=== PATIENT | male | born 1960 | race Caucasian/White ===

== ENCOUNTER 2017-01-28 07:39 | Inpatient (IN) ==
[2017-01-21 12:15] LABS: MANUAL DIFF NEEDED? NO; URINE MICRO REVIEW NEEDED? NO; URINE SOURCE CLEAN CATCH
[2017-01-21 12:17] LABS: BASO% 0.6 % (0.0-0.8); EOS# 0.12 X1000 (0.0-0.7); EOS% 1.4 % (0.0-10.0); HEMATOCRIT 42.6 % (42.0-52.0); HEMOGLOBIN 14.5 g/dL (14.0-18.0); IMM GRAN# 0.06 X1000 (0.0-0.04); IMM GRAN% 0.7 % (0.0-0.5); LYMPH# 2.14 X1000 (1.2-3.4); LYMPH% 25.4 % (20.5-51.1); MCH 30.1 PG (27-31); MCV 88.4 FL (81-99); MONO# 0.54 X1000 (0.11-0.59); MONO% 6.4 % (1.7-9.3); MPV 9.8 FL (7.4-10.4); NEUT% 65.5 % (42.2-75.2); PLT 219 X1000 (130-400); RBC 4.82 XMIL (4.7-6.1)
[2017-01-21 12:19] LABS: BILIRUBIN URINE NEGATIVE (NEGATIVE); BLOOD URINE TRACE (NEGATIVE); COLOR YELLOW; GLUCOSE URINE NEGATIVE (NEGATIVE); LEUKOCYTES URINE NEGATIVE (NEGATIVE); NITRITE URINE NEGATIVE (NEGATIVE); PH URINE 6.5; PROTEIN URINE NEGATIVE (NEGATIVE); SP GRAVITY URINE 1.008; TURBIDITY URINE CLEAR (CLEAR); UROBILINOGEN URINE NORMAL (NORMAL)
[2017-01-21 12:20] LABS: UR EPITHELIAL CELLS <10 /HPF (<10); URINE BACTERIA NEGATIVE /HPF; URINE RBC <10 /HPF (<10); URINE WBC <10 /HPF (<10)
[2017-01-21 12:28] LABS: PROTIME 10.5 Seconds (9.2-11.7)
[2017-01-21 12:38] LABS: AGAP 12; BUN 10 mg/dL (8-22); CALCIUM 8.9 mg/dL (8.8-10.2); CHLORIDE 100 mmol/L (98-107); COSMO 275; POTASSIUM 3.7 mmol/L (3.5-5.1); SODIUM 137 mmol/L (136-145); TCO2 25 mmol/L (25-35)
--- NOTE | 2017-01-22 05:31 | EKG Report ---
Test Performed on : 01/21/2017 11:46:00 AM Test Reason : Out Patient EKG Blood Pressure : / mmHG Vent. Rate : 052 BPM Atrial Rate : 052 BPM P-R Int : 146 ms QRS Dur : 112 ms QT Int : 444 ms P-R-T Axes : 046 024 041 degrees QTc Int : 412 ms Sinus bradycardia. Incomplete right bundle branch block Borderline ECG When compared with ECG of 19-DEC-2015 13:09, No significant change was found Confirmed by Ricky KIRK, Ben Martinez ([id number]) on 01/25/2017 12:37:16 PM
[2017-01-28] MEDS ORDERED: SEROQUEL PO PRN (09:05)
[2017-01-28] MEDS ORDERED: REGLAN ONE (09:13)
[2017-01-28] MEDS ORDERED: VALIUM ONE (09:13)
[2017-01-28] MEDS ORDERED: LYRICA ONE (09:13)
[2017-01-28] MEDS ORDERED: CELEBREX ONE (09:13)
[2017-01-28] MEDS ORDERED: PEPCID ONE (09:13)
[2017-01-28] MEDS ORDERED: COLACE ONE (09:13)
[2017-01-28] MEDS ORDERED: LR 1,000 ML ONE ×2 (09:14→13:24)
[2017-01-28] MEDS ORDERED: KEFZOL 2 GM/D5W 2 GM/50 ML IVPB ONE (09:14)
[2017-01-28] MEDS ORDERED: MEDROL DOSEPAK PO SCH ×2 (09:15→18:25)
[2017-01-28] MEDS ORDERED: ROBINUL ONE ×2 (09:39→13:24)
[2017-01-28] MEDS ORDERED: VERSED ONE (09:49)
[2017-01-28] MEDS ORDERED: NAROPIN 0.5% ONE (09:49)
[2017-01-28] MEDS ORDERED: TORADOL ONE (09:53)
[2017-01-28] MEDS ORDERED: CYKLOKAPRON 1,000 MG/NS 1,000 MG/100 ML IVPB ONE (09:54)
[2017-01-28] MEDS ORDERED: EXPAREL 1.3% ONE (09:54)
[2017-01-28] MEDS ORDERED: SODIUM CHLORIDE 0.9% ONE (09:54)
[2017-01-28] MEDS ORDERED: MARCAINE 0.25% PF/EPI 1:200,000 ONE (09:54)
[2017-01-28] MEDS ORDERED: NEOSPORIN G.U. IRRIGANT ONE (09:54)
[2017-01-28 12:00] LABS: URINE MICRO REVIEW NEEDED? NO; URINE SOURCE CATH
[2017-01-28 12:12] LABS: BILIRUBIN URINE NEGATIVE (NEGATIVE); BLOOD URINE NEGATIVE (NEGATIVE); COLOR YELLOW; GLUCOSE URINE NEGATIVE (NEGATIVE); LEUKOCYTES URINE NEGATIVE (NEGATIVE); NITRITE URINE NEGATIVE (NEGATIVE); PROTEIN URINE NEGATIVE (NEGATIVE); SP GRAVITY URINE 1.019; TURBIDITY URINE CLEAR (CLEAR); UROBILINOGEN URINE 2 mg/dL (NORMAL)
[2017-01-28 12:13] LABS: UR EPITHELIAL CELLS <10 /HPF (<10); URINE BACTERIA NEGATIVE /HPF; URINE RBC <10 /HPF (<10); URINE WBC <10 /HPF (<10)
[2017-01-28] MEDS ORDERED: DIPRIVAN 1% ONE (12:59)
[2017-01-28] MEDS ORDERED: EPHEDRINE ONE (13:23)
[2017-01-28] MEDS ORDERED: NEOSTIGMINE ONE (13:23)
[2017-01-28] MEDS ORDERED: ZOFRAN ONE (13:23)
[2017-01-28] MEDS ORDERED: OFIRMEV 1000 MG/ISOTONIC SOLN 1,000 MG/100 ML BOTTLE ONE (13:24)
[2017-01-28] MEDS ORDERED: XYLOCAINE-MPF 2% ONE (13:24)
[2017-01-28] MEDS ORDERED: DECADRON ONE (13:24)
[2017-01-28] MEDS ORDERED: QUELICIN (DOSE) ONE (13:24)
[2017-01-28] MEDS ORDERED: NORCURON ONE (13:24)
--- NOTE | 2017-01-28 13:39 | OPERATIVE NOTE ---
PROCEDURE DATE: 01/28/2017 PREOPERATIVE DIAGNOSIS: Rheumatoid arthritis, right glenohumeral joint. POSTOPERATIVE DIAGNOSIS: Rheumatoid arthritis, right glenohumeral joint. PROCEDURE: Right reverse total shoulder arthroplasty with DePuy Delta Xtend size 16 press-fit stem, a 42, +3 humeral cup, a 42 eccentric Glenosphere and a standard Metaglene. SURGEON: Etsrada Hernandes MD. DESIGN PRINTER BALLOON: FABIEN Mai, DENICE Pitt, and Sven Gutierrez RN. ANESTHESIA: General. IV FLUIDS: 1500 mL lactated Ringer's. ESTIMATED BLOOD LOSS: 200 mL. COMPLICATIONS: None. INDICATION: The patient is a 56-year-old male with a chronic history of worsening pain and discomfort in his right shoulder. The patient does have significant debilitating rheumatoid arthritis and recommendation to proceed with right reverse total shoulder arthroplasty was offered. Risks and benefits of surgery were explained, including the risks of anesthesia, , bleeding, infection, failure to relieve pain, postoperative stiffness, nerve injury, blood clots, and other imponderables. All questions answered and patient and family wish to proceed with the surgery. DETAILS OF THE OPERATION: The patient was taken to the operating room and placed supine on the operating table. Once adequate anesthesia was obtained, the patient was placed in a semi-Mcneil beach-chair position. The right shoulder was subsequently prepped and draped in the usual sterile fashion. Sterile fashion. A standard deltopectoral incision was made with skin knife. Hemostasis was obtained using electrocautery. The deltopectoral interval was then developed. The Pérez retractors were then placed. The subscapularis tendon was then elevated approximately 1 cm medial to its insertion. Attention then turned to the proximal humerus where further resection of the rotator cuff posteriorly and superiorly was performed. A starting reamer was then passed. Sequential reaming was then conducted up to a size 14. The proximal humeral cutting guide was pinned in position. The humeral head was then resected. Attention then turned to the glenoid. Using posterior tractors, circumferential dissection was then performed with a deep knife. A guide was then placed in position. Guide pin was placed. Reaming was then conducted. The central hole was then dilated. The wound was copiously irrigated with antibiotic pulsatile lavage. The standard Metaglene was then impacted in position. Three locking screws were placed and 1 nonlocking screw was placed and had good fixation. The wound was copiously irrigated once again. After this had been performed, a 42 eccentric Glenosphere was placed with eccentricity placed inferiorly. Attention then turned to the proximal humerus. The guide was then placed in position. The proximal humerus was reamed. Trial stem was then placed with a 14 and had significant loosening. Therefore, it was increased to a 16 and a trial 16 stem was placed. Initial temp at reduction, the patient did have significant stiffness about the shoulder. Attempt at reduction was unsuccessful. Therefore, a few more millimeters of the proximal humerus was resected and re-trialed and then had good stability with a +3 cup. The trial stem was then removed. Copious irrigation with antibiotic pulsatile lavage while a size 16 Delta Xtend press- fit stem was impacted in position with autologous impaction bone graft. A 42, + 3 humeral cup was impacted in position. The shoulder was reduced, carried through range of motion , and had good stability and acceptable range of motion. Exparel was placed in deep soft tissue. The subscapularis tendon was unable to be repaired. The Exparel was placed in deep soft tissue, as well as subcutaneous tissue. The wound was copiously once again with antibiotic pulsatile lavage. Then 2-0 Vicryl was used to repair the subcutaneous tissue followed by running 2 -0 Prolene. Benzoin and Steri-Strips were applied. Adaptic, sterile 4 x 4, ABD pad, and tape on the right shoulder, followed by a shoulder immobilizer. All counts were correct. The patient tolerated the procedure well. She was transferred to the recovery room in stable condition. cc: Estrada Hernandes MD MTDD
[2017-01-28] MEDS ORDERED: NS 1,000 ML ONE (13:47)
[2017-01-28] MEDS ORDERED: MORPHINE IV PRN (14:06)
[2017-01-28] MEDS ORDERED: ZOFRAN PO PRN (14:15)
[2017-01-28] MEDS ORDERED: MILK OF MAGNESIA PO PRN (14:15)
--- NOTE | 2017-01-28 14:31 | Diag Imaging Result Doc PS360 ---
EXAM: SHOULDER 1 VIEW RIGHT HISTORY: post op total shoulder TECHNIQUE: COMPARISON: 05/30/2016 FINDINGS: The patient has undergone orthopedic replacement of the shoulder since the prior exam. Humeral component appears well-positioned in the proximal shaft. No fracture or dislocation. No separation at the acromioclavicular joint. IMPRESSION: Orthopedic replacement of the right shoulder. Electronically signed by Jose Jay 01/28/2017 2:28 PM
[2017-01-28] MEDS: TYLENOL PO SCH ×2 (15:21→21:39)
[2017-01-28] MEDS: NS 1,000 ML IV SCH ×2 (15:22→21:39)
[2017-01-28] MEDS ORDERED: CYKLOKAPRON 1,000 MG in NS 100 ML IV ONE (16:45)
[2017-01-28] MEDS: CATAPRES PO SCH (17:20)
[2017-01-28] MEDS: KEFZOL 2 GM/D5W 2 GM/50 ML IVPB IV SCH (18:19)
[2017-01-28] MEDS: FLOMAX PO SCH (21:38)
[2017-01-28] MEDS: COLACE PO SCH (21:38)
[2017-01-28] MEDS: PERIDEX MT SCH (21:39)
[2017-01-29] MEDS: KEFZOL 2 GM/D5W 2 GM/50 ML IVPB IV SCH (03:04)
[2017-01-29] MEDS: TYLENOL PO SCH ×5 (03:04→22:42)
[2017-01-29] MEDS: NS 1,000 ML IV SCH ×2 (04:43→17:40)
[2017-01-29 05:50] LABS: HEMATOCRIT 35.6 % (42.0-52.0); HEMOGLOBIN 11.9 g/dL (14.0-18.0)
[2017-01-29] MEDS: OXY IR PO PRN ×3 (06:18→20:57)
[2017-01-29] MEDS: CELEXA PO SCH ×2 (06:18→09:00)
[2017-01-29 06:21] LABS: AGAP 15; BUN 10 mg/dL (8-22); CALCIUM 8.4 mg/dL (8.8-10.2); CHLORIDE 99 mmol/L (98-107); COSMO 271; POTASSIUM 4.3 mmol/L (3.5-5.1); SODIUM 136 mmol/L (136-145); TCO2 22 mmol/L (25-35)
--- NOTE | 2017-01-29 06:57 | PROGRESS NOTE ---
DATE: 01/29/2017 SUBJECTIVE: Patient is a pleasant, 56-year-old male who is 1 day status post right reverse shoulder arthroplasty. The patient is currently resting comfortably. PHYSICAL EXAMINATION: On physical exam of patient's right upper extremity, his dressing is intact. He is grossly neurovascularly intact throughout right upper extremity. LABORATORY DATA: His hemoglobin is 11.9 and hematocrit is 35.6. IMPRESSIONS: Postoperative day #1 status post right reverse shoulder arthroplasty. PLAN: At this point, we will change his dressing and discontinue his Harden, and Hep-Lock his IV. We will proceed with physical therapy. Patient has multiple medical problems and significant rheumatoid arthritis as well as neuropathy. It was felt that the patient would benefit from inpatient rehabilitation. Patient's family agreeable to this. We will consult [facility] for discharge planning. cc: Estrada Hernandes MD
[2017-01-29] MEDS ORDERED: FLOMAX PO SCH (09:00)
[2017-01-29] MEDS: PEPCID PO SCH ×3 (09:50→10:55)
[2017-01-29] MEDS: COLACE PO SCH ×2 (09:52→20:58)
[2017-01-29] MEDS: FLONASE NAS SCH (09:53)
[2017-01-29] MEDS: PERIDEX MT SCH ×2 (09:53→20:57)
[2017-01-29] MEDS: CATAPRES PO SCH ×4 (09:53→21:21)
--- NOTE | 2017-01-29 11:45 | Diag Imaging Result Doc PS360 ---
EXAM: CHEST-PORTABLE HISTORY: rehab TECHNIQUE: AP portable at 1125 COMMENT: The appearance of the chest has not changed significantly since 12/25/2015. The heart size and pulmonary vascularity are within normal limits. IMPRESSION: No acute disease. Electronically signed by Jet Reyes 01/29/2017 11:43 AM
[2017-01-29] MEDS: FLOMAX PO SCH (20:58)
[2017-01-29] MEDS ORDERED: CHLORASEPTIC SPRAY MT PRN (22:43)
[2017-01-30] MEDS: TYLENOL PO SCH ×5 (04:45→23:53)
[2017-01-30] MEDS: OXY IR PO PRN ×2 (04:46→14:10)
[2017-01-30 05:45] LABS: HEMATOCRIT 39.8 % (42.0-52.0); HEMOGLOBIN 13.3 g/dL (14.0-18.0)
--- NOTE | 2017-01-30 05:56 | PROGRESS NOTE ---
DATE: 01/30/2017 SUBJECTIVE: Patient is a pleasant 56-year-old male who is 2 days status post right reverse total shoulder arthroplasty. He is currently resting comfortably this morning. OBJECTIVE: Patient's wound looks good. There are no signs or symptoms of infection. He is grossly neurovascularly intact. LABORATORY DATA: His hemoglobin and hematocrit is pending IMPRESSION: Postoperative day #2 status post right reverse shoulder arthroplasty. PLAN: At this point, continue with therapy. We will continue with therapy for mobilization. Plan to discharge to rehab tomorrow. cc: Estrada Hernandes MD
--- NOTE | 2017-01-30 07:28 | DISCHARGE SUMMARY ---
ADMISSION DATE: 01/28/2017 DISCHARGE DATE: 01/31/2017 ADMITTING DIAGNOSES: 1. Rheumatoid arthritis, right glenohumeral joint. 2. Neuropathy. 3. Hypertension. DISCHARGE DIAGNOSES: 1. Rheumatoid arthritis, right glenohumeral joint. 2. Neuropathy. 3. Hypertension. 4. Status post right reverse shoulder arthroplasty. BRIEF HISTORY: The patient is a pleasant 56-year-old male with a chronic history of worsening pain and discomfort of his right shoulder. The patient does have debilitating rheumatoid arthritis and recommendation to proceed with right reverse shoulder arthroplasty was offered. Risks, benefits, and alternatives were discussed, and all questions were answered. The patient and family wished to proceed with surgery. HOSPITAL COURSE AND TREATMENT: The patient was admitted to the hospital and underwent right reverse shoulder arthroplasty. The patient tolerated the procedure well. By postop day #2, his hemoglobin and hematocrit had stabilized to 13.3 and 39.8. His wound looked good. There are no signs or symptoms of infection. Prior to discharge, the patient is afebrile, tolerating a regular diet. His pain was well controlled with p.o. medication. It was felt the patient would benefit from inpatient rehabilitation. The patient and family were agreeable to this. DISCHARGE MEDICATIONS: OxyIR 5 mg 1-2 p.o. q.4 hours p.r.n. pain. For remaining medications, please see medication list. DISCHARGE PLAN: 1. The patient will be discharged for inpatient rehabilitation. 2. Consult physical therapy for passive range of motion exercises of the right shoulder. 3. Discontinue sutures in 11 days. 4. Follow up in the office in 3-4 weeks. cc: Estrada Hernandes MD
[2017-01-30] MEDS ORDERED: VITAMIN D PO SCH ×2 (09:00→09:04)
[2017-01-30] MEDS: PEPCID PO SCH (09:37)
[2017-01-30] MEDS: CATAPRES PO SCH ×3 (09:37→17:44)
[2017-01-30] MEDS: CELEXA PO SCH (09:37)
[2017-01-30] MEDS: COLACE PO SCH ×2 (09:38→20:31)
[2017-01-30] MEDS: PERIDEX MT SCH ×2 (09:38→20:31)
[2017-01-30] MEDS: FLONASE NAS SCH (09:46)
[2017-01-30] MEDS: FLOMAX PO SCH (20:31)
[2017-01-31] MEDS: TYLENOL PO SCH ×2 (05:48→10:52)
[2017-01-31 06:42] LABS: HEMOGLOBIN 13.3 g/dL (14.0-18.0)
--- NOTE | 2017-01-31 10:11 | PROGRESS NOTE ---
DATE: 01/31/2017 SUBJECTIVE: Mr. Samson is lying in bed this morning. Pain seems well controlled. OBJECTIVE: Right upper extremity exam: Dressing is clean, dry, and intact. Shoulder immobilizer is in place. He seems neurovascularly intact right upper extremity. ASSESSMENT: Status post right reverse total shoulder arthroplasty. PLAN: I think Mr. Samson is doing great, and he is going to rehab today, and he will follow with Dr. Hernandes in clinic. cc: MD Estrada Croft MD
[2017-01-31] MEDS: PERIDEX MT SCH (10:52)
[2017-01-31] MEDS: COLACE PO SCH (10:53)
[2017-01-31] MEDS: FLONASE NAS SCH (10:53)
[2017-01-31] MEDS: PEPCID PO SCH (10:53)
[2017-01-31] MEDS: CELEXA PO SCH (10:53)
[2017-01-31] MEDS: CATAPRES PO SCH (10:53)
[2017-01-31 12:12] VITALS: BP 130/79
== END 2017-01-31 13:00 ==
LOC: SURHOLD 07:39 → 4N 14:02
PROVIDERS: ADMIT Orthopaedic Surgery Adult Reconstructive Orthopaedic Surgery; ATTEND Orthopaedic Surgery Adult Reconstructive Orthopaedic Surgery